=== PATIENT | female | born 1970 | race Caucasian/White ===

== ENCOUNTER 2022-02-18 17:45 | Emergency (ER) | payer SELFPAY ==
[2022-02-18 18:19] LABS: Urine Blood Trace-intact (Negative); Urine Glucose Negative (Negative); Urine Protein Negative (Negative); Urine Specific Gravity 1.025 (1.005-1.030); Urine pH 5.5 (5.0-7.0)
[2022-02-18] MEDS ORDERED: MORPHINE 4 MG/ML SYR ONE ×2 (18:40→20:13)
[2022-02-18] MEDS ORDERED: ONDANSETRON 4 MG/2 ML VIAL ONE (18:40)
[2022-02-18] MEDS ORDERED: NA CHLORIDE 0.9% 1,000 ML ONE (18:40)
[2022-02-18 18:54] LABS: Absolute Lymphocytes (CBC) 1.4 K/uL (0.7-4.9); Hematocrit 39.3 % (36.0-45.0); Lymphocytes % 17.2 % (15.3-44.8); MCV 83.2 fL (80-100); MPV 9.1 fL (7.6-11.3); RBC Red Blood Cell Count 4.73 M/uL (3.86-4.86)
[2022-02-18 19:16] LABS: Albumin 3.9 g/dL (3.4-5.0); Bilirubin Total 0.4 mg/dL (0.2-1.0); Protein, Total 8.4 g/dL (6.4-8.2)
[2022-02-18 19:25] LABS: Potassium 3.6 mmol/L (3.5-5.1)
--- NOTE | 2022-02-18 20:02 | RAD REPORT ---
EXAM DESCRIPTION: CT - Stone Protocol - 02/18/2022 7:38 pm CLINICAL HISTORY: Flank pain, kidney stone suspected COMPARISON: No comparisonsNo comparisons TECHNIQUE: Axial 3 mm thick images were obtained without oral or IV contrast. The [id number] span s the entirety of the system including uppermost abdomen and lung bases. All CT scans are performed using dose optimization technique as appropriate and may include automated exposure control or mA/KV adjustment according to patient size. FINDINGS: No hydronephrosis is present and no obstructing ureteral calculi. Patient has a nonobstruc ting 7 mm calcification lower pole left kidney. No suspicious renal masses. Isodense masses and pyelo nephritis are not excluded on a stone protocol CT scan. No significant adrenal finding. No urinary bl adder suspicious finding. Uterus is absent. Ovaries are absent or atrophic. Imaged portions of the liver, spleen and pancreas show no suspicious findings on non-contrast imaging . No gallbladder or biliary tree abnormality identified. No suspicious bowel findings. Appendix is normal. No active GI process identified. No hernia, mass or bulky lymphadenopathy noted. No free air, free fluid or inflammatory stranding. No significant bony abnormality. A 6 mm noncalcified nodule is present in the posterior lung base on the left. Full chest is not image d. If this is the only nodule present, follow-up recommendations would be CT chest imaging in 6-12 mo nths. If stable, CT study 18-24 months after this examination should be performed if the patient is h igh risk or considered if the patient is low risk. IMPRESSION: No hydronephrosis, obstructing calculus or other acute finding. No abnormality to exp juana provided history of right flank pain. Isodense masses and pyelonephritis are not excluded on stone protocol technique. A 6 millimeter noncalcified pulmonary nodule is present in the posterior left lung base. Follow-up re commendation detailed in the body of the report.
--- NOTE | 2022-02-18 21:22 | EDPHYS ---
Physician Documentation [facility] Name: Elise Michaud Age: 51 yrs Sex: Female : 1970 Arrival Date: 02/18/2022 Time: 17:50 Bed 19 Private MD: ED Physician Shad Good HPI: 02/18 18:10 This 51 yrs old Female presents to ER via Ambulatory with complaints of Right flank pm1 pain. 18:10 The patient complains of pain in the right low back. The pain does not radiate. Onset: pm1 The symptoms/episode began/occurred yesterday. Modifying factors: The symptoms are alleviated by nothing. the symptoms are aggravated by nothing. Associated signs and symptoms: Pertinent positives: dysuria, nausea, Pertinent negatives: fever. Severity of pain: in the emergency department the pain is actually worse. The patient has experienced similar episodes in the past, today's symptoms are similar, to previous kidney stones. The patient has not recently seen a physician. 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 - Social history:: Smoking status: Patient reports the use of cigarette tobacco products, smokes one-half pack cigarettes per day, Patient/guardian denies using alcohol. ROS: 18:10 Constitutional: Negative for fever, chills, and weight loss, Cardiovascular: Negative pm1 for chest pain, palpitations, and edema, Respiratory: Negative for shortness of breath, cough, wheezing, and pleuritic chest pain. 18:10 MS/Extremity: Negative for injury and deformity, Skin: Negative for injury, rash, and discoloration, Neuro: Negative for headache, weakness, numbness, tingling, and seizure. 18:10 Abdomen/GI: Positive for nausea, Negative for abdominal pain, vomiting, diarrhea. 18:10 Back: Positive for flank pain, on the right. 18:10 : Positive for urinary symptoms. 18:10 All other systems are negative. Exam: 18:10 Constitutional: This is a well developed, well nourished patient who is awake, alert, pm1 and in no acute distress. Head/Face: Normocephalic, atraumatic. 18:10 Skin: Warm, dry with normal turgor. Normal color with no rashes, no lesions, and no evidence of cellulitis. MS/ Extremity: Pulses equal, no cyanosis. Neurovascular intact. Full, normal range of motion. 18:10 Eyes: Exam is negative for acute changes, Periorbital structures: no acute changes, Extraocular movements: no acute changes, Conjunctiva: no acute changes, no injection. 18:10 Cardiovascular: Exam negative for acute changes, Rate: normal, Rhythm: regular, Pulses: no pulse deficits are appreciated, Heart sounds: normal, normal S1and S2. 18:10 Respiratory: Exam negative for acute changes, respiratory distress, shortness of breath. 18:10 Abdomen/GI: Inspection: abdomen appears normal, Palpation: abdomen is soft and non-tender, in all quadrants. 18:10 Back: pain, that is moderate, of the right low back, vertebral tenderness, is not appreciated. 18:10 Neuro: Exam negative for acute changes, Orientation: is normal, Mentation: is normal, Motor: is normal, moves all fours. Vital Signs: 18:06 Pulse 88; Resp 18; Temp 97.9(TE); Pulse Ox 100% on R/A; Weight 81.65 kg; Height 5 ft. 0 ld1 in. (152.40 cm); Pain 8/10; 18:15 BP 120 / 79 LA Supine (auto/reg); Pulse 80; Resp 18; Pulse Ox 98% on R/A; Pain 8/10; db 20:33 BP 123 / 82; Pulse 72; Resp 17 S; Pulse Ox 97% on R/A; lg3 18:06 Body Mass Index 35.15 (81.65 kg, 152.40 cm) ld1 MDM: 18:10 Patient medically screened. pm1 21:19 Data reviewed: vital signs. Data interpreted: Pulse oximetry: on room air is 97 %. pm1 Interpretation: normal. 21:19 Counseling: I had a detailed discussion with the patient and/or guardian regarding: the pm1 historical points, exam findings, and any diagnostic results supporting the discharge/admit diagnosis, lab results, radiology results, the need for outpatient follow up, a family practitioner. 21:19 Special discussion: I discussed with the patient the need to follow-up with the pm1 PCP/specialist for the noted incidental finding on X-ray/CT scanning. pulmonary nodule needs follow up as recommended by radiologist. Gave patient copy of Ct report and labs. 21:19 ED course: Told patient impression is likely muscular due to work up findings and she pm1 reports that she was moving last weekend. 02/18 18:10 Order name: CBC with Diff; Complete Time: 19:05 pm1 02/18 18:10 Order name: CMP; Complete Time: 19:31 pm1 02/18 18:10 Order name: Lipase; Complete Time: 19:31 pm1 02/18 18:10 Order name: CT Stone Protocol; Complete Time: 20:14 pm1 02/18 18:19 Order name: Urine Dipstick-Ancillary; Complete Time: 18:55 EDMS 02/18 18:10 Order name: IV Saline Lock; Complete Time: 18:54 pm1 02/18 18:10 Order name: Labs collected and sent; Complete Time: 18:55 pm1 02/18 18:10 Order name: Urine Dipstick-Ancillary (obtain specimen); Complete Time: 18:18 pm1 02/18 18:10 Order name: Urine Test (obtain specimen); Complete Time: 18:19 pm1 Administered Medications: 18:40 Drug: NS 0.9% 1000 ml Route: IV; Rate: 1 bolus; Site: right antecubital; db 20:10 Follow up: IV Status: Completed infusion; IV Intake: 1000ml lg3 18:40 Drug: Zofran (Ondansetron) 4 mg Route: IVP; Site: right antecubital; db 20:10 Follow up: Response: No adverse reaction; Marked relief of symptoms lg3 18:40 Drug: morphine 4 mg Route: IVP; Infused Over: 4 mins; Site: right antecubital; db 20:10 Follow up: Response: No adverse reaction; No change in condition; Pain is unchanged, lg3 physician notified 20:18 Drug: morphine 4 mg Route: IVP; Infused Over: 4 mins; Site: right antecubital; lg3 21:32 Drug: Ketorolac 30 mg Route: IVP; Site: right antecubital; lg3 21:32 Drug: Lidoderm Patch 5 % (700 mg/patch) 1 patches Route: Topical; Site: affected area; lg3 21:33 Drug: Flexeril (cyclobenzaprine) 10 mg Route: PO; lg3 Disposition: 19:39 Co-signature as Attending Physician, Shad Good DO I was immediately available on-site ms3 in the Emergency Department for consultation in the care of the patient.. Disposition Summary: 02/18/22 21:22 Discharge Ordered Location: Home pm1 Problem: new pm1 Symptoms: have improved pm1 Condition: Stable pm1 Diagnosis - Low back pain pm1 - Muscle spasm of back pm1 Followup: pm1 - With: Emergency Department - When: As needed - Reason: Worsening of condition Followup: pm1 - With: Private Physician - When: 2 - 3 days - Reason: Recheck today's complaints, Continuance of care, Re-evaluation by your physician Discharge Instructions: - Discharge Summary Sheet pm1 - Acute Back Pain, Adult pm1 - Muscle Strain pm1 - Musculoskeletal Pain pm1 - Back Injury Prevention, [id number] pm1 - Heat Therapy pm1 Forms: - Medication Reconciliation Form pm1 - Thank You Letter pm1 - Antibiotic Education pm1 - Prescription Opioid Use pm1 Prescriptions: - Cyclobenzaprine 10 mg Oral Tablet - take 1 tablet by ORAL route every 8 hours As needed; 30 tablet; Refills: 0, pm1 Product Selection Permitted - Lidoderm 5 % Topical adhesive patch,medicated - apply 1 patch by TRANSDERMAL route once daily As needed 12 hours on and 12 pm1 hours off in a 24 hour period; 30 patch; Refills: 0, Product Selection Permitted - Tylenol-Codeine #3 300 mg-30 mg Oral - take 2 tablet by ORAL route every 6 hours As needed; 20 tablet; Refills: 0, pm1 Product Selection Permitted Signatures: Dispatcher [employer] Abraham Lee NP CASHIER TICKET SELLING pm1 Shoshana Noguera, RN RN lg3 Shad Good DO DO ms3 Priya Rivera RN RN ld1 Veronica Parker RN RN db
--- NOTE | 2022-02-18 21:22 | ER ---
Nurse's Notes [facility] Name: Elise Michaud Age: 51 yrs Sex: Female : 1970 Arrival Date: 02/18/2022 Time: 17:50 Bed 19 Private MD: Diagnosis: Low back pain;Muscle spasm of back Presentation: 02/18 18:06 Chief complaint: Patient states: Right flank pain X 1 day. Pt reports severe flank ld1 pain, "I think it is a kidney stone.". Coronavirus screen: At this time, the client does not indicate any symptoms associated with coronavirus-19. Ebola Screen: No symptoms or risks identified at this time. Initial Sepsis Screen: Does the patient meet any 2 criteria? No. Patient's initial sepsis screen is negative. Does the patient have a suspected source of infection? No. Patient's initial sepsis screen is negative. Risk Assessment: Do you want to hurt yourself or someone else? Patient reports no desire to harm self or others. Onset of symptoms was February 18, 2022. 18:06 Method Of Arrival: Ambulatory ld1 18:06 Acuity: ISIDORO 3 ld1 Triage Assessment: 18:07 General: Appears in no apparent distress. uncomfortable, Behavior is calm, cooperative, ld1 appropriate for age. Pain: Complains of pain in right low back Pain does not radiate. Pain currently is 8 out of 10 on a pain scale. Quality of pain is described as sharp, shooting, Pain began 1 day ago. Is continuous. EENT: No signs and/or symptoms were reported regarding the EENT system. Neuro: Level of Consciousness is awake, alert, obeys commands, Oriented to person, place, time, situation, Appropriate for age. Cardiovascular: Capillary refill < 3 seconds Patient's skin is warm and dry. Respiratory: Airway is patent Respiratory effort is even, unlabored. GI: Abdomen is round non-distended. : No signs and/or symptoms were reported regarding the genitourinary system. Musculoskeletal: No signs and/or symptoms reported regarding the musculoskeletal system. 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 - Social history:: Smoking status: Patient reports the use of cigarette tobacco products, smokes one-half pack cigarettes per day, Patient/guardian denies using alcohol. Screenin:15 Abuse screen: Denies threats or abuse. Denies injuries from another. Nutritional db screening: No deficits noted. Tuberculosis screening: No symptoms or risk factors identified. Fall Risk None identified. No fall in past 12 months (0 pts). No secondary diagnosis (0 pts). IV access (20 points). Ambulatory Aid- None/Bed Rest/Nurse Assist (0 pts). Gait- Normal/Bed Rest/Wheelchair (0 pts) Mental Status- Oriented to own ability (0 pts). Total Bird Fall Scale indicates No Risk (0-24 pts). Assessment: 18:35 Reassessment: Patient appears in no apparent distress at this time. Patient is alert, db oriented x 3, equal unlabored respirations, skin warm/dry/pink. patient states has left lower flank pain started today at 0100 with nausea. Denies vomiting. States thinks its kidney stones. General: Appears in no apparent distress. distressed, comfortable, Behavior is calm, cooperative, appropriate for age, quiet. Pain: Complains of pain in left flank. Neuro: No deficits noted. Level of Consciousness is awake, alert, obeys commands, Oriented to person, place, time, situation, Appropriate for age Speech is normal, Facial symmetry appears normal. Cardiovascular: No deficits noted. Respiratory: No deficits noted. GI: No deficits noted. Bowel sounds present X 4 quads. Abd is soft Abd is non tender. : No deficits noted. No signs and/or symptoms were reported regarding the genitourinary system. : Reports. EENT: No deficits noted. No signs and/or symptoms were reported regarding the EENT system. Derm: No deficits noted. No signs and/or symptoms reported regarding the dermatologic system. 20:33 General: Appears in no apparent distress. uncomfortable, Behavior is calm, cooperative. lg3 Pain: Complains of pain in right low back Pain currently is 7 out of 10 on a pain scale. Noted to be grimacing, guarding, resistant to movement. Neuro: No deficits noted. Higginbotham Agitation-Sedation Scale (RASS): 0 - Alert and Calm Level of Consciousness is awake, alert, obeys commands, Oriented to person, place, time, situation. Cardiovascular: No deficits noted. Denies chest pain, shortness of breath, Capillary refill < 3 seconds Clubbing of nail beds is absent JVD is absent Patient's skin is warm and dry. Respiratory: No deficits noted. Airway is patent Trachea midline Respiratory effort is even, unlabored, Respiratory pattern is regular, symmetrical, Breath sounds are clear bilaterally. GI: No deficits noted. Abdomen is round non-distended, Bowel sounds present X 4 quads. Abd is soft and non tender X 4 quads. : No deficits noted. No signs and/or symptoms were reported regarding the genitourinary system. EENT: No deficits noted. No signs and/or symptoms were reported regarding the EENT system. Derm: No deficits noted. No signs and/or symptoms reported regarding the dermatologic system. Skin is intact, is healthy with good turgor, Skin is dry, Skin is normal, Skin temperature is warm. Musculoskeletal: No deficits noted. No signs and/or symptoms reported regarding the musculoskeletal system. Circulation, motion, and sensation intact. Range of motion: intact in all extremities. Vital Signs: 18:06 Pulse 88; Resp 18; Temp 97.9(TE); Pulse Ox 100% on R/A; Weight 81.65 kg; Height 5 ft. 0 ld1 in. (152.40 cm); Pain 8/10; 18:15 BP 120 / 79 LA Supine (auto/reg); Pulse 80; Resp 18; Pulse Ox 98% on R/A; Pain 8/10; db 20:33 BP 123 / 82; Pulse 72; Resp 17 S; Pulse Ox 97% on R/A; lg3 18:06 Body Mass Index 35.15 (81.65 kg, 152.40 cm) ld1 ED Course: 17:50 Patient arrived in ED. dt4 18:02 Abraham Antunez NP is PHCP. pm1 18:02 Shad Good DO is Attending Physician. pm1 18:07 Triage completed. ld1 18:07 Arm band placed on right wrist. ld1 18:15 Patient has correct armband on for positive identification. Bed in low position. Call db light in reach. Side rails up X 1. 18:26 Veronica Parker, MELVIN is Primary Nurse. db 18:40 Inserted saline lock: 20 gauge in right antecubital area, using aseptic technique. db 19:18 Report given to MELVIN Anna. Pulse ox on. NIBP on. db 19:40 CT Stone Protocol In Process Unspecified. EDMS 21:50 No provider procedures requiring assistance completed. IV discontinued, intact, lg3 bleeding controlled, No redness/swelling at site. Pressure dressing applied. Administered Medications: 18:40 Drug: NS 0.9% 1000 ml Route: IV; Rate: 1 bolus; Site: right antecubital; db 20:10 Follow up: IV Status: Completed infusion; IV Intake: 1000ml lg3 18:40 Drug: Zofran (Ondansetron) 4 mg Route: IVP; Site: right antecubital; db 20:10 Follow up: Response: No adverse reaction; Marked relief of symptoms lg3 18:40 Drug: morphine 4 mg Route: IVP; Infused Over: 4 mins; Site: right antecubital; db 20:10 Follow up: Response: No adverse reaction; No change in condition; Pain is unchanged, lg3 physician notified 20:18 Drug: morphine 4 mg Route: IVP; Infused Over: 4 mins; Site: right antecubital; lg3 21:32 Drug: Ketorolac 30 mg Route: IVP; Site: right antecubital; lg3 21:32 Drug: Lidoderm Patch 5 % (700 mg/patch) 1 patches Route: Topical; Site: affected area; lg3 21:33 Drug: Flexeril (cyclobenzaprine) 10 mg Route: PO; lg3 Medication: 18:15 VIS not applicable for this client. db Intake: 20:10 IV: 1000ml; Total: 1000ml. lg3 Outcome: 21:22 Discharge ordered by MD. pm1 21:50 Discharged to home ambulatory. lg3 21:50 Condition: stable 21:50 Discharge instructions given to patient, Instructed on discharge instructions, follow up and referral plans. medication usage, Demonstrated understanding of instructions, follow-up care, medications, Prescriptions given X 3. 21:50 Patient left the ED. lg3 Signatures: Dispatcher [employer] EDMS Abraham Antunez, VP OF DIGITAL MARKETING VP OF DIGITAL MARKETING pm1 Shoshana Noguera RN RN lg3 Priya Rivera RN RN ld1 Kay Garcia dt4 Veronica Parker, RN RN db
[2022-02-18] MEDS ORDERED: CYCLOBENZAPRINE 10 MG TAB ONE (21:28)
[2022-02-18] MEDS ORDERED: LIDOCAINE 4% PATCH ONE (21:28)
[2022-02-18] MEDS ORDERED: KETOROLAC 30 MG/ML INJ ONE (21:28)
[2022-02-18 23:03] VITALS: TEMP 97.9
[2022-02-18 23:10] VITALS: BP 123/82; O2SAT 97
== END 2022-02-18 21:50 | disposition home or self-care (01) ==
LOC: ER 17:45
DX: M62.830 Muscle spasm of back (principal); F17.210 Nicotine dependence, cigarettes, uncomplicated
CPT/HCPCS: 36415; 74176; 76377; 80053; 81003; 83690; 85025; 96361; 96374; 96375; 99284; J2001; J2405; J7030

== ENCOUNTER 2024-02-23 13:13 | Emergency (ER) | payer OTHER, SELFPAY ==
--- OUTSIDE RECORDS SUMMARY | 2024-02-23 13:16 | XMS REPORT | Continuity of Care Document ---
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
[2024-02-23] MEDS ORDERED: KETOROLAC 30 MG/ML INJ ONE (13:45)
[2024-02-23] MEDS ORDERED: ONDANSETRON 4 MG/2 ML VIAL ONE ×2 (13:45→16:39)
[2024-02-23] MEDS ORDERED: NA CHLORIDE 0.9% 1,000 ML ONE (13:46)
[2024-02-23 13:56] LABS: Absolute Eosinophils 0.1 K/uL (0-0.5); Absolute Lymphocytes (CBC) 1.5 K/uL (0.7-4.9); Absolute Monocytes 0.4 K/uL (0.1-1.3); Absolute Neutrophil 7.3 K/uL (1.8-8.0); Basophils % 0.2 % (0-1.3); Eosinophils % 0.9 % (0-4.4); Hematocrit 37.6 % (36.0-45.0); Hemoglobin 12.3 g/dL (12.0-15.0); Lymphocytes % 16.2 % (15.3-44.8); MCH 28.2 pg (27.0-35.0); MCHC 32.8 g/dL (32.0-36.0); MCV 85.9 fL (80-100); MPV 9.2 fL (7.6-11.3); Monocytes % 4.6 % (3.3-12.3); Neutrophils % 78.1 % (41.7-73.7); Nucleated Red Blood Cells % 0.1 % (0-0); Platelets 233 thou/uL (152-406); RBC Red Blood Cell Count 4.38 M/uL (3.86-4.86); Red Cell Distribution Width 14.1 % (12.1-15.2)
[2024-02-23 14:03] LABS: Specific Gravity > 1.030 (1.005-1.030); Sqamous Epithelial 20-50 /HPF (None Seen); Transitional Epithelial <5 /HPF (None Seen); Urine Bacteria >50 /HPF (<20); Urine Bilirubin NEGATIVE (Negative); Urine Blood 2+ (Negative); Urine Clarity Extremely Turbid (Clear); Urine Color Yellow (Yellow); Urine Culture Reflex Order NOT NEEDED; Urine Glucose NEGATIVE (Negative); Urine Ketones TRACE (Negative); Urine Microscopic Reflex YN ORDER UMIC; Urine Mucus Slight /HPF (None Seen); Urine Nitrite NEGATIVE (Negative); Urine Protein TRACE (Negative); Urine RBC >50 /HPF (None Seen); Urine Urobilinogen 1+ (Normal); Urine WBC <5 /HPF (<5); Urine pH 5.5 (5.0-7.0)
[2024-02-23 14:19] LABS: Albumin 3.4 g/dL (3.4-5.0); Albumin/Globulin Ratio 0.8 (1.1-1.8); Anion Gap 6.9 mEq/L (5.0-15.0); Bilirubin Total 0.5 mg/dL (0.2-1.0); Globulin 4.4 g/dL (2.3-3.5); Potassium 3.9 mEq/L (3.5-5.1); Protein, Total 7.8 g/dL (6.4-8.2)
--- NOTE | 2024-02-23 15:12 | RAD REPORT ---
EXAMINATION: CT ABDOMEN AND PELVIS WITH CONTRAST CLINICAL INDICATION: ABD PAIN TECHNIQUE: CT abdomen and pelvis was performed, after the administration of IV contrast[facility] Axial, sagittal and coronal reconstructions were obtained. One or more of the following dose reduction techniques were used: Automated exposure control, adjustment of the mA and k V according to patient size, and iterative reconstruction. Unless otherwise specified, incidental findings do not require dedicated imaging follow-up. COMPARISON: No prior exam. FINDINGS: LOWER CHEST: Small nodule in the left lung base posteriorly measuring 8 mm with central punctate calc ification likely benign. LIVER: Normal in size and contour. No focal lesion. Grossly unremarkable gallbladder. SPLEEN: Normal size. No focal lesion. PANCREAS: No mass, ductal dilation, or cesar-pancreatic fluid. ADRENALS: Normal; no mass. KIDNEYS: 8 mm nonobstructive calculus inferior calyx left kidney. GASTROINTESTINAL TRACT: Advanced pattern of fecal retention in the colon. Irregular luminal narrowing measuring 4 cm of the sigmoid colon noted could be neoplastic in origin. Mild surrounding inflammation in the region. APPENDIX: Appendix not visualized, but no inflammatory changes in region of appendix. LYMPH NODES: Upper limit of normal retroperitoneal lymph nodes seen. Subcentimeter left pelvic sidewa ll/obturator lymph nodes. MUSCULOSKELETAL: Lumbosacral degenerative changes with mild levoscoliosis. ADDITIONAL FINDINGS: None. IMPRESSION: 4 cm section of the sigmoid colon with significant luminal narrowing and mild surrounding inflammatio n. There is significant upstream retention of stool throughout the colon. Malignancy is the diagnosis of concern, recommend colonoscopy follow-up.
--- NOTE | 2024-02-23 16:31 | ER ---
Nurse's Notes [facility] Name: Elise Michaud Age: 53 yrs Sex: Female : 1970 Arrival Date: 02/23/2024 Time: 13:13 Bed 11 Private MD: Diagnosis: UTI/ Urinary tract infection, site not specified;4cm section of inflammation and narrowing in sigmoid colon Presentation: 02/22 13:24 Chief complaint: Patient states: Lower abdominal pain and cramping with hematuria onset ll1 3.5 weeks ago. Pt states that her symptoms had resolved and started back on wednesday. Coronavirus screen: Client denies travel out of the [place] in the last 14 days. Ebola Screen: Patient denies travel to an Ebola-affected area in the 21 days before illness onset. No symptoms or risks identified at this time. Initial Sepsis Screen: Does the patient meet any 2 criteria? HR > 90 bpm. Does the patient have a suspected source of infection? No. Patient's initial sepsis screen is negative. Risk Assessment: Do you want to hurt yourself or someone else? Patient reports no desire to harm self or others. Onset of symptoms was February 23, 2024. 13:24 Method Of Arrival: Ambulatory ll1 13:24 Acuity: ISIDORO 3 ll1 Triage Assessment: 13:26 General: Appears in no apparent distress. uncomfortable, Behavior is calm, cooperative. ll1 Pain: Complains of pain in back and abdomen. Neuro: No deficits noted. Level of Consciousness is awake, alert, obeys commands, Oriented to person, place, time, situation, Appropriate for age. Respiratory: No deficits noted. Airway is patent Respiratory effort is even, unlabored, Respiratory pattern is regular, symmetrical. Historical: - Allergies: 13:24 No Known Allergies; ll1 - Home Meds: 13:24 Ozempic subcutaneous [Active]; ll1 - PMHx: 13:24 Hypertensive disorder; ll1 - PSHx: 13:24 hysterectomy; ll1 - Immunization history:: Adult Immunizations up to date. - Infectious Disease History:: Denies. - Social history:: Smoking status: Patient reports the use of cigarette tobacco products, smokes one-half pack cigarettes per day. Screenin:30 [facility] ED Fall Risk Assessment (Adult) History of falling in the last 3 months, rs5 including since admission No falls in past 3 months (0 pts) Confusion or Disorientation No (0 pts) Intoxicated or Sedated No (0 pts) Impaired Gait No (0 pts) Mobility Assist Device Used No (0 pt) Altered Elimination No (0 pt) Score/Fall Risk Level 0 - 2 = Low Risk Oriented to surroundings, Maintained a safe environment. 13:30 Abuse screen: Denies threats or abuse. Nutritional screening: No deficits noted. rs5 Tuberculosis screening: No symptoms or risk factors identified. Assessment: 13:30 General: Appears in no apparent distress. uncomfortable, Behavior is calm, cooperative. rs5 Pain: Complains of pain in abdomen Pain currently is 3 out of 10 on a pain scale. Quality of pain is described as aching, Is continuous. Neuro: Level of Consciousness is awake, alert, obeys commands, Oriented to person, place, time, situation. 13:30 Cardiovascular: Patient's skin is warm and dry. Respiratory: Airway is patent rs5 Respiratory effort is even, unlabored, Respiratory pattern is regular, symmetrical. GI: Abdomen is round non-distended, Abd is soft and non tender X 4 quads. : Reports hematuria. EENT: No signs and/or symptoms were reported regarding the EENT system. Derm: Skin is intact, Skin is pink, warm \T\ dry. Musculoskeletal: Range of motion: intact in all extremities. 14:41 Reassessment: Patient and/or family updated on plan of care and expected duration. Pain rs5 level reassessed. Patient is alert, oriented x 3, equal unlabored respirations, skin warm/dry/pink. 15:54 Reassessment: Patient and/or family updated on plan of care and expected duration. Pain rs5 level reassessed. Patient is alert/active/playful, equal unlabored respirations, skin warm/dry/pink. 16:25 Reassessment: Patient and/or family updated on plan of care and expected duration. Pain rs5 level reassessed. Patient is alert, oriented x 3, equal unlabored respirations, skin warm/dry/pink. Vital Signs: 13:24 BP 142 / 98; Pulse 102; Resp 18; Temp 98.6; Pulse Ox 100% on R/A; Weight 73.94 kg; ll1 Height 5 ft. 0 in. ; Pain 7/10; 15:04 BP 128 / 79; Pulse 77; Resp 17; Pulse Ox 99% on R/A; rs5 16:25 BP 134 / 81; Pulse 81; Resp 17; Pulse Ox 99% on R/A; rs5 13:24 Body Mass Index 31.84 (73.94 kg, 152.4 cm) ll1 13:24 Pain Scale: Adult ll1 ED Course: 13:18 Patient arrived in ED. ra3 13:18 Courtney Olguin FNP-C is [facility]. kb 13:18 Lexx Valles MD is Attending Physician. kb 13:25 Triage completed. ll1 13:26 Arm band placed on Patient placed in an exam room, on a stretcher. ll1 13:30 Patient has correct armband on for positive identification. Placed in gown. Bed in low rs5 position. Call light in reach. Side rails up X2. 13:30 No provider procedures requiring assistance completed. rs5 13:53 Inserted saline lock: 22 gauge in right antecubital area, using aseptic technique. ll1 Blood collected. Flushed with 10 mL NS. 14:48 CT Abd/Pelvis - IV Contrast Only In Process Unspecified. EDMS 15:02 Sunday Zabala, RN is Primary Nurse. rs5 16:30 Provided Education on: discharge instructions . rs5 16:41 IV discontinued, intact, bleeding controlled, No redness/swelling at site. Pressure rs5 dressing applied. Administered Medications: 13:52 Drug: TORadol - Ketorolac IVP 15 mg IVP once {Note: PAIN 3/10.} Route: IVP; Site: right ll1 antecubital; 14:10 Follow up: Response: No adverse reaction; Pain is decreased rs5 13:52 Drug: Ondansetron IVP 4 mg IVP once; over 2 minutes Route: IVP; Site: right antecubital;ll1 14:20 Follow up: Response: No adverse reaction rs5 13:52 Drug: NS 0.9% IV 1000 ml IV at 1 bolus Per protocol; to be given as a bolus over 60 ll1 minutes Route: IV; Rate: 1 bolus; Site: right antecubital; 14:58 Follow up: IV Status: Completed infusion; IV Intake: 1000ml rs5 16:35 Drug: Ondansetron IVP 4 mg IVP once; over 2 minutes Route: IVP; Site: right antecubital;rs5 17:00 Follow up: Response: No adverse reaction rs5 Medication: 16:35 VIS not applicable for this client. rs5 Intake: 14:58 IV: 1000ml; Total: 1000ml. rs5 Outcome: 16:30 Discharge ordered by . hi 16:41 Discharged to home ambulatory, rs5 16:41 Condition: stable rs5 16:41 Discharge instructions given to patient, family, Instructed on discharge instructions, follow up and referral plans. Demonstrated understanding of instructions, follow-up care, 16:45 Patient left the ED. rs5 Signatures: Dispatcher [employer] EDMS Courtney Olguin, DAY-Shyam BERNSTEIN-Alejandro Castro RN RN ll1 Sunday Zabala RN RN rs5 Sima Montanez ra3 Corrections: (The following items were deleted from the chart) 18:28 13:30 Pain: Complains of pain in back and abdomen Pain currently is 3 out of 10 on a rs5 pain scale. Quality of pain is described as aching, Is continuous, rs5 18:28 13:30 : No signs and/or symptoms were reported regarding the genitourinary system. rs5rs5 18:28 13:30 EENT: No signs and/or symptoms were reported regarding the EENT system. rs5 rs5
--- NOTE | 2024-02-23 16:31 | EDPHYS ---
Physician Documentation [facility] Name: Elise Michaud Age: 53 yrs Sex: Female : 1970 Arrival Date: 02/23/2024 Time: 13:13 Bed 11 Private MD: ED Physician Lexx Valles HPI: 02/22 13:25 This 53 yrs old Female presents to ER via Unassigned with complaints of Low Back Pain, kb Pelvic Pain. 13:25 Patient is a 53-year-old female who presents for low back pain and lower abdominal pain kb that started 3-1/2 weeks ago. Reports pain has been intermittent with intermittent hematuria as well. Was seen by a nurse practitioner and diagnosed with UTI a few weeks ago, took antibiotics and felt better but the pain returns. States she saw kidney doctor in [place] last week and was told that she was constipated. That doctor ordered a CT scan and blood work that was supposed to be completed yesterday for a follow-up visit next week. Patient states she did not go get the diagnostic testing done because she was in a lot of pain and vomiting yesterday so she did not want a go anywhere. Reports pain continued today. Denies vomiting, hematuria at this time. Denies fever.. Historical: - Allergies: 13:24 No Known Allergies; ll1 - Home Meds: 13:24 Ozempic subcutaneous [Active]; ll1 - PMHx: 13:24 Hypertensive disorder; ll1 - PSHx: 13:24 hysterectomy; ll1 - Immunization history:: Adult Immunizations up to date. - Infectious Disease History:: Denies. - Social history:: Smoking status: Patient reports the use of cigarette tobacco products, smokes one-half pack cigarettes per day. ROS: 13:26 Constitutional: As per HPI kb Exam: 13:26 Constitutional: This is a well developed, well nourished patient who is awake, alert, kb and in no acute distress. Head/Face: Normocephalic, atraumatic. ENT: Moist Mucous membranes Cardiovascular: Regular rate Respiratory: Respirations even and unlabored. No increased work of breathing. Talking in full sentences Back: No spinal tenderness. No costovertebral tenderness. Full range of motion. Skin: Warm, dry with normal turgor. Normal color. MS/ Extremity: Pulses equal, no cyanosis. Neurovascular intact. Full, normal range of motion. Neuro: Awake and alert, GCS 15, oriented to person, place, time, and situation. 13:26 Abdomen/GI: Inspection: abdomen appears normal, Bowel sounds: normal, Palpation: soft, in all quadrants, moderate abdominal tenderness, in the right lower quadrant and left lower quadrant, Vital Signs: 13:24 BP 142 / 98; Pulse 102; Resp 18; Temp 98.6; Pulse Ox 100% on R/A; Weight 73.94 kg; ll1 Height 5 ft. 0 in. ; Pain 7/10; 15:04 BP 128 / 79; Pulse 77; Resp 17; Pulse Ox 99% on R/A; rs5 16:25 BP 134 / 81; Pulse 81; Resp 17; Pulse Ox 99% on R/A; rs5 13:24 Body Mass Index 31.84 (73.94 kg, 152.4 cm) ll1 13:24 Pain Scale: Adult ll1 MDM: 13:18 Medical Screening Exam initiated kb 13:27 Data reviewed: vital signs, nurses notes. kb 16:25 Differential diagnosis: appendicitis, bowel obstruction, non-specific abd pain, kb Pyelonephritis, urinary tract infection, constipation. Consideration of Admission/Observation Escalation of care including admission/observation considered. admission considered but pt is having normal, daily bowel movements, pain has decreased. Pt understands importance of close follow up with GI and will call for appt tomorrow. Pt given strict return precautions. Educated on increased risk of bowel obstruction and to return for increase in pain or if she isn't passing gas or stool. Pt educated on high suspicion for malignancy based on CT results. Verbal understanding of all information/instructions received. Pt and in agreement with treatment plan. Printed copy of all results given and explained. Historians other than the Patient: Spouse/Significant Other: . Counseling: I had a detailed discussion with the patient and/or guardian regarding the historical points, exam findings, and any diagnostic results supporting the discharge/admit diagnosis, lab results, radiology results, the need for outpatient follow up, a emanations analysis technician, to return to the emergency department if symptoms worsen or persist or if there are any questions or concerns that arise at home. 02/22 13:24 Order name: CBC with Diff; Complete Time: 13:59 kb 02/22 13:24 Order name: CMP; Complete Time: 14:20 kb 02/22 13:24 Order name: Lipase; Complete Time: 14:20 kb 02/22 13:24 Order name: Urinalysis w/ reflexes; Complete Time: 14:06 kb 02/22 13:24 Order name: CT Abd/Pelvis - IV Contrast Only; Complete Time: 15:14 kb 02/22 13:24 Order name: IV Saline Lock; Complete Time: 13:35 kb 02/22 13:24 Order name: Labs collected and sent; Complete Time: 13:35 kb Administered Medications: 13:52 Drug: TORadol - Ketorolac IVP 15 mg IVP once {Note: PAIN 3/10.} Route: IVP; Site: right ll1 antecubital; 14:10 Follow up: Response: No adverse reaction; Pain is decreased rs5 13:52 Drug: Ondansetron IVP 4 mg IVP once; over 2 minutes Route: IVP; Site: right antecubital;ll1 14:20 Follow up: Response: No adverse reaction rs5 13:52 Drug: NS 0.9% IV 1000 ml IV at 1 bolus Per protocol; to be given as a bolus over 60 ll1 minutes Route: IV; Rate: 1 bolus; Site: right antecubital; 14:58 Follow up: IV Status: Completed infusion; IV Intake: 1000ml rs5 16:35 Drug: Ondansetron IVP 4 mg IVP once; over 2 minutes Route: IVP; Site: right antecubital;rs5 17:00 Follow up: Response: No adverse reaction rs5 Disposition: 17:45 Co-signature as Attending Physician, Lexx Valles MD I reviewed the patient's care rn provided by the Advanced Practice Provider and agree with the diagnosis and treatment plan. Disposition Summary: 02/23/24 16:30 Discharge Ordered Notes: Location: Home kb Condition: Stable kb Diagnosis - UTI/ Urinary tract infection, site not specified kb - 4cm section of inflammation and narrowing in sigmoid colon kb Followup: kb - With: Emergency Department - When: As needed - Reason: Worsening of condition Followup: kb - With: Private Physician - When: 2 - 3 days - Reason: Recheck today's complaints, Continuance of care, Re-evaluation by your physician Discharge Instructions: - Discharge Summary Sheet kb - Urinary Tract Infection, Adult, [id number] kb Forms: - Medication Reconciliation Form kb - Antibiotic Education kb - Prescription Opioid Use kb - Patient Portal Instructions kb - Leadership Thank You Letter kb Prescriptions: - Cipro 500 mg Oral Tablet - take 1 tablet ORAL route every 12 hours for 10 days; 20 tablet; Refills: 0, kb Product Selection Permitted - Flagyl 500 mg Oral Tablet - take 1 tablet ORAL route every 8 hours for 10 days; 30 tablet; Refills: 0, kb Product Selection Permitted - Zofran 4 mg Oral tablet - take 1 tablet ORAL route every 6 hours As needed; 20 tablet; Refills: 0, kb Product Selection Permitted Signatures: Dispatcher [employer] EDLA Courtney Olguin, AGRICULTURE DEPARTMENT CHAIR-C AGRICULTURE DEPARTMENT CHAIR-Lexx Proctor MD MD rn Lewis, Lynsay RN RN ll1 Sunday Zabala RN RN rs5 Corrections: (The following items were deleted from the chart) 13:25 13:25 Abdomen Pelvis W Con+CT.RAD.BRZ ordered. [facility] 16:32 16:25 Consideration of Admission/Observation Escalation of care including kb admission/observation considered. admission considered but pt is having normal, daily bowel movements, pain has decreased. Pt understands importance of close follow up with GI and will call for appt tomorrow. Pt given strict return precautions. Educated on increased risk of bowel obstruction and to return for increase in pain or if she isn't passing gas or stool. Pt educated on high suspicion for malignancy based on CT results. Verbal understanding of all information/instructions received. Pt and in agreement with treatment plan.. kb 16:32 16:25 Counseling: I had a detailed discussion with the patient and/or guardian hi regarding the historical points, exam findings, and any diagnostic results supporting the discharge/admit diagnosis, lab results, radiology results, the need for outpatient follow up, a emanations analysis technician, to return to the emergency department if symptoms worsen or persist or if there are any questions or concerns that arise at home, hi
[2024-02-23 17:11] VITALS: BP 142/98; TEMP 98.6; O2SAT 100
== END 2024-02-23 16:45 | disposition home or self-care (01) ==
LOC: ER 13:13
DX: N39.0 Urinary tract infection, site not specified (principal); K63.89 Other specified diseases of intestine; I10 Essential (primary) hypertension
CPT/HCPCS: 85025; 81001; 36415; 83690; 80053; 74177; Q9967; J2405 ×2; J7030; 96361; 96374; 96375; 99284

== ENCOUNTER 2024-05-10 19:26 | Emergency (ER) | payer OTHER ==
--- OUTSIDE RECORDS SUMMARY | 2024-05-10 19:29 | XMS REPORT | Continuity of Care Document ---
Author Name Unknown Address [address] [place] [address] thconnect Address [address] [place] [address] Care Team Providers Care Metal Framer Name Role Phone Unavailable Unavailable Unavailable
[2024-05-10] MEDS ORDERED: ONDANSETRON 4 MG/2 ML VIAL ONE (20:29)
[2024-05-10] MEDS ORDERED: NA CHLORIDE 0.9% 500 ML ONE (20:29)
[2024-05-10] MEDS ORDERED: KETOROLAC 30 MG/ML INJ ONE (20:29)
[2024-05-10 21:13] LABS: Specific Gravity > 1.030 (1.005-1.030); Sqamous Epithelial <5 /HPF (None Seen); Urine Bacteria None Seen /HPF (<20); Urine Bilirubin NEGATIVE (Negative); Urine Blood Trace (Negative); Urine Clarity Clear (Clear); Urine Color Yellow (Yellow); Urine Crystals Unidentified Few /HPF (None Seen); Urine Culture Reflex Order NOT NEEDED; Urine Glucose NEGATIVE (Negative); Urine Ketones NEGATIVE (Negative); Urine Micro Reflex YN NO BILL MICROSCOPIC; Urine Mucus Slight /HPF (None Seen); Urine Nitrite NEGATIVE (Negative); Urine Protein TRACE (Negative); Urine Urobilinogen Normal (Normal); Urine WBC <5 /HPF (<5); Urine pH 5.5 (5.0-7.0)
[2024-05-10 21:14] LABS: Absolute Lymphocytes (CBC) 1.4 K/uL (0.7-4.9); Absolute Monocytes 0.4 K/uL (0.1-1.3); Absolute Neutrophil 4.2 K/uL (1.8-8.0); Basophils % 0.2 % (0-1.3); Eosinophils % 0.8 % (0-4.4); Hematocrit 42.1 % (36.0-45.0); Hemoglobin 14.2 g/dL (12.0-15.0); Lymphocytes % 23.4 % (15.3-44.8); MCH 28.6 pg (27.0-35.0); MCHC 33.7 g/dL (32.0-36.0); Monocytes % 6.3 % (3.3-12.3); Neutrophils % 69.3 % (41.7-73.7); Platelets 241 thou/uL (152-406); RBC Red Blood Cell Count 4.95 M/uL (3.86-4.86); Red Cell Distribution Width 14.3 % (12.1-15.2)
[2024-05-10 21:23] LABS: Albumin 3.8 g/dL (3.4-5.0); Albumin/Globulin Ratio 0.9 (1.1-1.8); Anion Gap 7.7 mEq/L (5.0-15.0); Bilirubin Total 0.3 mg/dL (0.2-1.0); Globulin 4.1 g/dL (2.3-3.5); Potassium 3.7 mEq/L (3.5-5.1); Protein, Total 7.9 g/dL (6.4-8.2)
--- NOTE | 2024-05-10 22:17 | RAD REPORT ---
EXAMINATION: CT ABDOMEN AND PELVIS WITH CONTRAST CLINICAL INDICATION: Female, 54 years old.lower abdomen pain TECHNIQUE: CT abdomen and pelvis was performed, after the administration of IV contrast, as per [facility] protocol. Axial, sagittal and coronal reconstructions were obtained. One or more of the following dose reduction techniques were used: Automated exposure control, adjustment of the mA and/o r kV according to patient size, and/or iterative reconstruction. Unless otherwise specified, incidental findings do not require dedicated imaging follow-up. [id number]. COMPARISON: 02/23/2024 FINDINGS: LOWER CHEST: Partially calcified left lower lobe nodule has benign imaging features.No significant pe ricardial effusion. UPPER GI: No significant abnormality. LIVER: Hepatic steatosis, but otherwise unremarkable. GALLBLADDER/BILE DUCTS: Distended gallbladder. No pericholecystic fluid changes.? PANCREAS: Atrophy, but otherwise unremarkable. SPLEEN: Unremarkable. ADRENALS: No adrenal masses. KIDNEYS AND URETERS: No hydronephrosis.Low density and/or too small to characterize renal lesions whi ch are statistically benign.6 mm stone in the interpolar aspect of the left kidney. ABDOMINAL AORTA AND OTHER VESSELS: Mild atherosclerotic changes. PERITONEUM: No abnormal free fluid. No free air. LYMPH NODES: No pathologic lymphadenopathy. ABDOMINAL WALL: Unremarkable SMALL BOWEL/COLON: Similar to prior, there are segments of thickening in the mid and distal sigmoid c olon with interspersed inspissated stool.Overall, the stool burden is moderate. Normal appendix. URINARY BLADDER: Underdistended but grossly unremarkable. REPRODUCTIVE ORGANS: Uterus surgically absent. No adnexal abnormality. MUSCULOSKELETAL: ADDITIONAL FINDINGS: None. IMPRESSION: 1. Moderate inspissated stool with segments of wall thickening at the mid and distal sigmoid colon si milar to prior. This could reflect some component of colitis in conjunction with constipation. 2. Nonobstructive left nephrolithiasis. 3. Distended gallbladder. If concern for acute cholecystitis, consider right upper quadrant ultrasoun d.
[2024-05-10] MEDS ORDERED: CEFTRIAXONE 1000 MG/VIAL ONE (23:13)
--- NOTE | 2024-05-11 00:37 | ER ---
Nurse's Notes [facility] Name: Elise Michaud Age: 54 yrs Sex: Female : 1970 Arrival Date: 05/10/2024 Time: 19:26 Bed 16 Private MD: Diagnosis: Dysuria;Other cholelithiasis without obstruction;Constipation, unspecified Presentation: 05/10 19:45 Chief complaint: Patient states: vomiting and not eating x 2-3 days ago, pt also aa5 reports pain with urination and hematuria. Reports she is taking Ozempic for weight loss. Coronavirus screen: vomiting. Ebola Screen: Patient denies travel to an Ebola-affected area in the 21 days before illness onset. Initial Sepsis Screen: Does the patient meet any 2 criteria? No. Patient's initial sepsis screen is negative. Does the patient have a suspected source of infection? No. Patient's initial sepsis screen is negative. Risk Assessment: Do you want to hurt yourself or someone else? Patient reports no desire to harm self or others. Onset of symptoms was April 2024. 19:45 Acuity: ISDIORO 3 aa5 19:45 Method Of Arrival: Ambulatory aa5 Historical: - Allergies: 19:45 No Known Allergies; aa5 - PMHx: 19:45 Hypertensive disorder; aa5 - PSHx: 19:45 hysterectomy; aa5 - Immunization history:: Adult Immunizations unknown. - Infectious Disease History:: Denies. - Social history:: Smoking status: Patient reports the use of cigarette tobacco products. Screenin/16 00:47 [facility] ED Fall Risk Assessment (Adult) History of falling in the last 3 months, jb4 including since admission No falls in past 3 months (0 pts) Confusion or Disorientation No (0 pts) Intoxicated or Sedated No (0 pts) Impaired Gait No (0 pts) Mobility Assist Device Used No (0 pt) Altered Elimination No (0 pt) Score/Fall Risk Level 0 - 2 = Low Risk Oriented to surroundings, Maintained a safe environment. Abuse screen: Denies threats or abuse. Nutritional screening: No deficits noted. Tuberculosis screening: No symptoms or risk factors identified. Assessment: 05/10 20:00 General: Appears in no apparent distress. comfortable, Behavior is calm, cooperative, jb4 appropriate for age. Pain: Complains of pain in abdomen Pain does not radiate. Pain currently is 7 out of 10 on a pain scale. Neuro: Level of Consciousness is awake, alert, obeys commands, Oriented to person, place, time, situation. Cardiovascular: Patient's skin is warm and dry. Respiratory: Airway is patent Respiratory effort is even, unlabored, Respiratory pattern is regular, symmetrical. Derm: Skin is intact, Skin is pink, warm \T\ dry. Musculoskeletal: Circulation, motion, and sensation intact. Range of motion: intact in all extremities. 21:46 Reassessment: Patient appears in no apparent distress at this time. Patient and/or jb4 family updated on plan of care and expected duration. Pain level reassessed. Patient is alert, oriented x 3, equal unlabored respirations, skin warm/dry/pink. 22:45 Reassessment: Patient appears in no apparent distress at this time. Patient and/or jb4 family updated on plan of care and expected duration. Pain level reassessed. Patient is alert, oriented x 3, equal unlabored respirations, skin warm/dry/pink. 23:43 Reassessment: Patient appears in no apparent distress at this time. Patient and/or jb4 family updated on plan of care and expected duration. Pain level reassessed. Patient is alert, oriented x 3, equal unlabored respirations, skin warm/dry/pink. 05/11 00:47 Reassessment: Patient appears in no apparent distress at this time. Patient and/or jb4 family updated on plan of care and expected duration. Pain level reassessed. Patient is alert, oriented x 3, equal unlabored respirations, skin warm/dry/pink. Vital Signs: 05/10 19:45 BP 153 / 103; Pulse 97; Resp 18 S; Temp 97.8(TE); Pulse Ox 99% on R/A; Weight 70.31 kg aa5 (R); Height 5 ft. 0 in. (R); 21:00 BP 162 / 108; Pulse 82; Resp 16; Pulse Ox 98% on R/A; jb4 23:46 BP 167 / 109; Pulse 88; Resp 16; Pulse Ox 97% on R/A; jb4 19:45 Body Mass Index 30.27 (70.31 kg, 152.4 cm) aa5 ED Course: 19:31 Patient arrived in ED. gm2 19:31 John Garrett PA is PHCP. cp 19:31 John Mendez MD is Attending Physician. cp 19:45 Arm band placed on Patient placed in an exam room, on a stretcher. aa5 19:47 Triage completed. aa5 21:01 CBC with Diff Sent. jb4 21:01 CMP Sent. jb4 21:01 Lipase Sent. jb4 21:01 Urinalysis W/Microscopic Sent. jb4 21:59 CT Abd/Pelvis - IV Contrast Only In Process Unspecified. EDMS 23:38 US Abdomen Limited: gallbladder In Process Unspecified. EDMS 05/11 00:37 Adam Hendricks MD is Referral Physician. cp 00:37 Oziel Baca MD is Referral Physician. cp 00:47 Patient has correct armband on for positive identification. Bed in low position. Call jb4 light in reach. Side rails up X 1. Provided Education on: discharge instructions. . 00:47 No provider procedures requiring assistance completed. IV discontinued, intact, jb4 bleeding controlled, No redness/swelling at site. Pressure dressing applied. Administered Medications: 05/10 21:01 Drug: Ondansetron IVP 4 mg IVP once; over 2 minutes Route: IVP; Site: left antecubital; jb4 21:30 Follow up: Response: No adverse reaction; Marked relief of symptoms jb4 21:01 Drug: Ketorolac IVP 15 mg IVP once Route: IVP; Site: left antecubital; jb4 21:30 Follow up: Response: No adverse reaction; Marked relief of symptoms jb4 21:01 Drug: NS 0.9% IV 500 ml 500 ml IV at 1 bolus once; to be given as a bolus over 30 jb4 minutes Volume: 500 ml; Route: IV; Rate: 1 bolus; Site: left antecubital; 21:30 Follow up: Response: No adverse reaction; Marked relief of symptoms; IV Status: jb4 Completed infusion; IV Intake: 500ml 23:22 Drug: Rocephin IV 1 grams IV at calculated rate once; Given slow IV push per pharmacy jb4 instructions Route: IV; Rate: calculated rate; Site: left antecubital; Medication: 05/11 00:47 VIS not applicable for this client. jb4 Intake: 05/10 21:30 IV: 500ml; Total: 500ml. jb4 Outcome: 05/11 00:37 Discharge ordered by . cassidy 00:47 Discharged to home ambulatory, jb4 00:47 Condition: stable 00:47 Discharge instructions given to patient, Instructed on discharge instructions, follow up and referral plans. medication usage, Demonstrated understanding of instructions, follow-up care, medications, Prescriptions given X 3, 00:49 Patient left the ED. jb4 Signatures: Dispatcher [employer] EDMS Alicia Renee RN RN aa5 John Garrett PA PA cp Bryson, James, RN RN jb4 Cece Patel gm2 Corrections: (The following items were deleted from the chart) 05/10 23:45 23:43 BP 168 / 83; Pulse 60bpm; Resp 16bpm; Pulse Ox 98% RA; jb4 jb4
--- NOTE | 2024-05-11 00:37 | EDPHYS ---
Physician Documentation [facility] Name: Elise Michaud Age: 54 yrs Sex: Female : 1970 Arrival Date: 05/10/2024 Time: 19:26 Bed 16 Private MD: ED Physician John Mendez HPI: 05/10 19:55 This 54 yrs old Female presents to ER via Ambulatory with complaints of Pain With cp Urination, Nausea/Vomiting. 19:55 The patient presents with abdominal pain in the lower abdomen. cp 19:55 Onset: The symptoms/episode began/occurred 3 day(s) ago. Associated signs and symptoms: cp Pertinent positives: nausea and vomiting, constipation, dysuria, hematuria, Pertinent negatives: blood in stools, chest pain. Severity of pain: in the emergency department the pain is unchanged despite home interventions. Historical: - Allergies: 19:45 No Known Allergies; aa5 - PMHx: 19:45 Hypertensive disorder; aa5 - PSHx: 19:45 hysterectomy; aa5 - Immunization history:: Adult Immunizations unknown. - Infectious Disease History:: Denies. - Social history:: Smoking status: Patient reports the use of cigarette tobacco products. ROS: 20:00 Constitutional: Negative for body aches, chills, fever, poor PO intake, cp 20:00 Eyes: Negative for injury, pain, redness, and discharge, cp 20:00 Cardiovascular: Negative for chest pain, palpitations, 20:00 Respiratory: Negative for cough, shortness of breath, wheezing, 20:00 Abdomen/GI: Positive for lower abdomen pain, 20:00 : Positive for burning with urination, Negative for vaginal bleeding, 20:00 Neuro: Negative for altered mental status, headache, weakness, 20:00 All other systems are negative, Exam: 20:05 Constitutional: The patient appears in no acute distress, alert, awake, non-toxic, well cp developed, well nourished, 20:05 Head/Face: Normocephalic, atraumatic. cp 20:05 Eyes: Periorbital structures: appear normal, Conjunctiva: normal, no exudate, no injection, Sclera: no appreciated abnormality, Lids and lashes: appear normal, bilaterally, 20:05 ENT: External ear(s): are unremarkable, Nose: is normal, Mouth: Lips: moist, Oral mucosa: moist, Posterior pharynx: Airway: no evidence of obstruction, patent, 20:05 Chest/axilla: Inspection: normal, 20:05 Cardiovascular: Rate: normal, Rhythm: regular, 20:05 Respiratory: the patient does not display signs of respiratory distress, Respirations: normal, no use of accessory muscles, no retractions, labored breathing, is not present, Breath sounds: are clear throughout, no decreased breath sounds, no stridor, no wheezing, 20:05 Abdomen/GI: Inspection: abdomen appears normal, Bowel sounds: active, all quadrants, Palpation: soft, in all quadrants, mild abdominal tenderness, in the right lower quadrant and left lower quadrant, rebound tenderness, is not appreciated, 20:05 Back: CVA tenderness, is absent, 20:05 Neuro: Orientation: to person, place \T\ time. Mentation: is normal, Motor: moves all fours, strength is normal, Sensation: is normal, Vital Signs: 19:45 BP 153 / 103; Pulse 97; Resp 18 S; Temp 97.8(TE); Pulse Ox 99% on R/A; Weight 70.31 kg aa5 (R); Height 5 ft. 0 in. (R); 21:00 BP 162 / 108; Pulse 82; Resp 16; Pulse Ox 98% on R/A; jb4 23:46 BP 167 / 109; Pulse 88; Resp 16; Pulse Ox 97% on R/A; jb4 19:45 Body Mass Index 30.27 (70.31 kg, 152.4 cm) aa5 MDM: 19:42 Medical Screening Exam initiated chapin 05/11 00:36 Data reviewed: vital signs, nurses notes, lab test result(s), radiologic studies, CT cp scan, ultrasound, and as a result, I will discharge patient. 00:36 Differential diagnosis: appendicitis, bowel obstruction, cholecystitis, Cholelithiasis, cp diverticulitis, non-specific abd pain, pancreatitis, Pyelonephritis, Ureterolithiasis, urinary tract infection. I considered the following discharge prescriptions or medication management in the emergency department Medications were administered in the Emergency Department. See MAR. Care significantly affected by the following chronic conditions: Hypertension. Counseling: I had a detailed discussion with the patient and/or guardian regarding the historical points, exam findings, and any diagnostic results supporting the discharge/admit diagnosis, lab results, radiology results, the need for outpatient follow up, a general surgeon, to return to the emergency department if symptoms worsen or persist or if there are any questions or concerns that arise at home. Response to treatment: the patient's symptoms have markedly improved after treatment, and as a result, I will discharge patient. Special discussion: Based on the patient's Hx, exam, and Dx evaluation, there is no indication for emergent surgery or inpatient Tx. It is understood by the patient/guardian that if the Sx's persist or worsen they need to return immediately for re-evaluation. 05/10 19:46 Order name: Urinalysis W/Microscopic; Complete Time: 22:56 cp 05/10 22:56 Interpretation: Normal except: Urine SG > 1.030; UBLD Trace; UPROT TRACE; UESTR 75; cp URBC 5-10. 05/10 19:55 Order name: CBC with Diff; Complete Time: 22:56 cp 05/10 22:56 Interpretation: Normal except: RBC 4.95. cp 05/10 19:55 Order name: CMP; Complete Time: 22:56 cp 05/10 22:57 Interpretation: Normal except: CL 108; GLUC 111; GFR 85; AST 14; GLOB 4.1; A/G 0.9. cp 05/10 19:55 Order name: Lipase; Complete Time: 22:56 cp 05/10 21:08 Order name: CT Abd/Pelvis - IV Contrast Only; Complete Time: 22:56 cp 05/10 22:58 Order name: US Abdomen Limited: gallbladder cp 05/11 00:44 Interpretation: Report reviewed. cp 05/10 19:55 Order name: IV Saline Lock; Complete Time: 21:01 cp 05/10 19:55 Order name: Labs collected and sent; Complete Time: 21:01 cp 05/10 22:58 Order name: NPO; Complete Time: 23:00 cp 05/10 23:47 Order name: PO challenge; Complete Time: 00:49 cp Administered Medications: 05/10 21:01 Drug: Ondansetron IVP 4 mg IVP once; over 2 minutes Route: IVP; Site: left antecubital; jb4 21:30 Follow up: Response: No adverse reaction; Marked relief of symptoms jb4 21:01 Drug: Ketorolac IVP 15 mg IVP once Route: IVP; Site: left antecubital; jb4 21:30 Follow up: Response: No adverse reaction; Marked relief of symptoms jb4 21:01 Drug: NS 0.9% IV 500 ml 500 ml IV at 1 bolus once; to be given as a bolus over 30 jb4 minutes Volume: 500 ml; Route: IV; Rate: 1 bolus; Site: left antecubital; 21:30 Follow up: Response: No adverse reaction; Marked relief of symptoms; IV Status: jb4 Completed infusion; IV Intake: 500ml 23:22 Drug: Rocephin IV 1 grams IV at calculated rate once; Given slow IV push per pharmacy jb4 instructions Route: IV; Rate: calculated rate; Site: left antecubital; Disposition: 05/11 09:38 Co-signature as Attending Physician, John Mendez MD I agree with the assessment and chapin plan of care. Disposition Summary: 05/11/24 00:37 Discharge Ordered Notes: Location: Home cp Problem: new cp Symptoms: have improved cp Condition: Stable cp Diagnosis - Dysuria cp - Other cholelithiasis without obstruction cp - Constipation, unspecified cp Followup: cp - With: Adam Hendricks MD - When: 2 - 3 days - Reason: cholelithiasis Followup: cp - With: Oziel Baca MD - When: 5 - 6 days - Reason: constipation and possible colitis Discharge Instructions: - Discharge Summary Sheet cp - Constipation, Adult cp - Dysuria cp - Cholelithiasis cp Forms: - Medication Reconciliation Form cp - Antibiotic Education cp - Prescription Opioid Use cp - Patient Portal Instructions cp - Leadership Thank You Letter cp Prescriptions: - Cipro 500 mg Oral Tablet - take 1 tablet ORAL route every 12 hours for 7 days; 14 tablet; Refills: 0, cp Product Selection Permitted - Metronidazole 500 mg Oral tablet - take 1 tablet ORAL route every 8 hours for 7 days; 21 tablet; Refills: 0, cp Product Selection Permitted - dicyclomine 20 mg Oral tablet - take 1 tablet ORAL route 4 times per day As needed for abdominal pain; 30 cp tablet; Refills: 0, Product Selection Permitted Signatures: Dispatcher [employer] John Monzon MD MD cha Calderon, Audri, RN RN aa5 John Garrett PA PA Vasquez Mccollum, RN RN jb4
--- NOTE | 2024-05-11 00:40 | RAD REPORT ---
CLINICAL HISTORY: Abdominal pain, multiple GB stones. COMPARISON: None. TECHNIQUE: US ABDOMEN LIMITED 05/10/2024 10:58 PM SENIOR ANALYTICAL CHEMIST FINDINGS: Gallbladder contains innumerable layering gallstones. There is no significant gallbladder wall thicke katie. Common bile duct measures 5 mm. IMPRESSION: Cholelithiasis. Electronically signed by: Luca Nicholson MD 05/11/2024 12:37 AM SENIOR ANALYTICAL CHEMIST RP Due to temporary technical issues with the [email or web address] scribe reporting system, reports are being signed by the in-house radiologist without review as a courtesy to ensure prompt reporting the interpreting radiologist is fully responsible for the content of the report. Transcribed Date/Time: 05/11/2024 12:39 AM
[2024-05-12 02:36] VITALS: BP 167/109; TEMP 97.8; O2SAT 97
== END 2024-05-11 00:49 | disposition home or self-care (01) ==
LOC: ER 19:26
DX: K80.80 Other cholelithiasis without obstruction (principal); K59.00 Constipation, unspecified
CPT/HCPCS: 85025; 81001; 36415; 83690; 80053; 74177; 76705; 96375; 96374; 99284; Q9967; J2405; J7040; J0696

== ENCOUNTER 2024-05-29 07:18 | Day surgery (SDC) | payer OTHER ==
[2024-05-29] MEDS ORDERED: LIDOCAINE 1% MPF 5 ML VIAL ONE (08:31)
[2024-05-29] MEDS ORDERED: propofoL 200 MG/20 ML VIAL IV ONE (08:32)
[2024-05-29] MEDS ORDERED: EPHEDRINE SULF 50 MG/ML VIAL ONE (08:32)
[2024-05-29] MEDS: NA CHLORIDE 0.9% 1,000 ML ONE (08:43)
[2024-05-29 10:33] VITALS: O2SAT 99
[2024-05-29 10:40] VITALS: BP 135/78; TEMP 97.6
--- NOTE | 2024-05-30 12:26 | EKG ---
Test Date: 2024-05-26 Test Time: 16:17:16 Sap Developer: JAKE MEASUREMENT RESULTS: Intervals: Rate: 90 MI: 146 QRSD: 76 QT: 368 QTc: 450 [place]: P: 35 MI: 146 QRS: 35 T: 42 INTERPRETIVE STATEMENTS: Normal sinus rhythm Cannot rule out Anterior infarct, age undetermined Abnormal ECG Compared to ECG 02/26/2005 09:25:00 Myocardial infarct finding now present Sinus tachycardia no longer present Short MI interval no longer present Electronically Signed On 05-30-24 12:19:35 HANDY WORKER by Matthew Arteaga
== END 2024-05-29 09:33 | disposition home or self-care (01) ==
LOC: OR 07:18
PROVIDERS: ATTEND Surgery
PROC: 0DJD8ZZ Inspection of Lower Intestinal Tract, Via Natural or Artificial Opening Endoscopic (ICD-10-PCS; principal; 2024-05-29 08:30)
DX: Z12.11 Encounter for screening for malignant neoplasm of colon (principal); K64.4 Residual hemorrhoidal skin tags; K64.8 Other hemorrhoids
CPT/HCPCS: 93005; 82947; 45378; J2704; J2003; J7030

== ENCOUNTER 2024-06-05 09:12 | Day surgery (SDC) | payer OTHER ==
[2024-06-02 16:49] LABS: ALT/SGPT 19 U/L (13-56); AST/SGOT 13 U/L (15-37); Albumin 3.5 g/dL (3.4-5.0); Albumin/Globulin Ratio 0.9 (1.1-1.8); Alkaline Phosphatase 68 U/L (45-117); Bilirubin Total 0.2 mg/dL (0.2-1.0); Globulin 3.8 g/dL (2.3-3.5); Lipase 23 U/L (13-75); Protein, Total 7.3 g/dL (6.4-8.2)
[2024-06-02 16:51] LABS: Bilirubin Direct < 0.2 mg/dL (0-0.2)
--- NOTE | 2024-06-02 17:00 | RAD REPORT ---
Procedure: Chest Pa And Lat (2 Views) HISTORY: Preop for cholecystectomy. COMPARISON: none FINDINGS: The lungs appear clear of acute infiltrate. No significant pleural effusion noted. The heart is normal size. IMPRESSION: No acute abnormality is displayed.
[2024-06-05] MEDS ORDERED: NA CHLORIDE 0.9% 1,000 ML ONE (09:36)
[2024-06-05] MEDS ORDERED: LIDOCAINE 1% MPF 5 ML VIAL ONE (09:50)
[2024-06-05] MEDS ORDERED: propofoL 200 MG/20 ML VIAL IV ONE (09:50)
[2024-06-05] MEDS ORDERED: KETOROLAC 30 MG/ML INJ ONE (09:50)
[2024-06-05] MEDS ORDERED: ONDANSETRON 4 MG/2 ML VIAL ONE (09:50)
[2024-06-05] MEDS ORDERED: MIDAZOLAM HCL 2 MG/2 ML INJ ONE (09:51)
[2024-06-05] MEDS ORDERED: FENTANYL CITR 100 MCG/2 ML ONE (09:51)
[2024-06-05] MEDS ORDERED: ROCURONIUM 50 MG/5 ML VIAL IV ONE (09:51)
[2024-06-05] MEDS: CEFOXITIN SODIUM 1 GM/VIAL ONE (10:51)
[2024-06-05] MEDS ORDERED: dexAMETHasone 4 MG/ML VIAL ONE (10:57)
[2024-06-05] MEDS ORDERED: Mastisol Adhesive Liq ONE (11:28)
--- NOTE | 2024-06-05 11:38 | P.BOP ---
Preoperative diagnosis: acute cholecystitis, symptomatic cholelithiasis, RUQ abd pain Postoperative diagnosis: same plus umbilical hernia Primary procedure: 1. Laparoscopic cholecystectomy Secondary procedure: 2. Open umbilical hernia repair Estimated blood loss: <10cc Specimen: GB Findings: as above Anesthesia: General Complications: None Transferred to: Recovery Room Condition: Good
[2024-06-05] MEDS: ONDANSETRON 4 MG/2 ML VIAL ONE (11:54)
[2024-06-05] MEDS ORDERED: SUGAMMADEX SODIUM 200 MG/2 ML VIAL IV ONE (12:37)
[2024-06-05 13:33] VITALS: BP 130/79; TEMP 98; O2SAT 97
--- NOTE | 2024-06-05 22:18 | DS ---
Date of Discharge: 06/05/2024 Diagnoses: Acute cholecystitis, symptomatic cholelithiasis, right upper quadrant abdominal pain, and umbilical hernia. Procedures: Laparoscopic cholecystectomy, open repair of umbilical hernia. Condition: Stable. Disposition: Home. Activity: As tolerated. No heavy lifting. Discharge Instructions: Follow up in my office in 1 week. Call for appointment at [phone]. Keep a ronnie dry for 48 hours, then may shower. Keep Steri-Strip intact. MULU/ADOLFO Voice ID: [id number] Report ID: [id number]
--- NOTE | 2024-06-05 22:18 | OP ---
Date of Procedure: 06/05/2024 Surgeon: Iain Escalona MD Preoperative Diagnoses: Acute cholecystitis, symptomatic cholelithiasis, right upper quadrant abdomi nal pain. Postoperative Diagnoses: Acute cholecystitis, symptomatic cholelithiasis, right upper quadrant abdom inal pain, umbilical hernia. Procedures: 1. Laparoscopic cholecystectomy. 2. Open umbilical hernia repair. Estimated Blood Loss: Less than 10 cc. Specimen: Gallbladder. Findings: The patient has the inflamed gallbladder with multiple omental adhesions to the gallbladde r. She also has umbilical hernia that needed to be repaired. Anesthesia: General plus local. Complications: None. Implants: None. Indications: This is the case of a 54-year-old patient who comes to us with recurrent epigastric and right upper quadrant pain, radiating to the back, associated with nausea and vomiting, diagnosed wit h acute cholecystitis and symptomatic cholelithiasis. The benefits, alternatives, and risks of lapar oscopic, possible open cholecystectomy were fully explained, which included, but not limited to, infe ction, bleeding, damage to adjacent structures, anesthesia complication, choledocholithiasis, bile le ak, pancreatitis, OK, and even . She also understands this may not relieve symptoms. She might need more than one surgical intervention. She understood and signed a consent. Procedure In Detail: The patient was brought to the operating room, placed in supine position. Anes thesia was done without complication. Abdominal area was prepped and draped in usual sterile fashion . Marcaine 0.5% was injected for local anesthetic, followed by sharp incision of the skin in the sup raumbilical region. Incision was carried down to fascia. We noticed, when we opened the fascia, the patient had an umbilical hernia. We cannot continue without fixing that, since this will affect our closure at the end, so the hernia fascial edges were cleaned. We proceeded to place Vicryl #1 in a [id number] fashion multiple times. The fascial edges were cleaned. After that, then we continu ed. We put a Luis F trocar. Pneumoperitoneum was obtained. Placed 3 more trocars, 5 mm each one of them in the epigastric and right upper quadrant area under direct visualization after obtaining pneu moperitoneum. We noticed multiple omental adhesions to the gallbladder consistent with also chronic evidence of cholecystitis, so with the help of LigaSure, we were able to slowly remove adhesions away from the gallbladder and from the liver until we had a clear visualization of the gallbladder. Gras per was placed in the infundibulum, another grasper in the fundus. The gallbladder was retracted in the inferolateral fashion exposing the triangle of Calot, obtaining critical view. The cystic duct a nd cystic artery were clearly isolated and freed circumferentially, and a connection between those an d the gallbladder was clearly identified. I proceeded to ligate those by using at least 3 clips prox imal and 1 clip distal, ligation in the middle. Same was done with the cystic artery. No bile leak. No bleeding. The gallbladder was removed from liver using Bovie cauterizer and removed from abdomi nal cavity using the Endo Catch through the umbilical incision. The area was inspected once again. No bile leak. No bleeding. The area of adhesions with no bleeding. We proceeded to remove the troc ars under direct vision, deflated the pneumoperitoneum. Closed the fascia and the umbilical hernia w ith #1 Vicryl, irrigated subcutaneous tissue and closed that with 3-0 chromic, and the skin with 3-0 chromic sutures. Steri-Strip was placed over the area. Sponge counts and instrument counts were cor rect. The patient tolerated procedure well. The patient was sent to recovery in stable condition. MULU/ADOLFO Voice ID: [id number] Report ID: [id number]
== END 2024-06-05 13:20 | disposition home or self-care (01) ==
LOC: OR 09:12
PROVIDERS: ATTEND Surgery
PROC: 0DNU4ZZ Release Omentum, Percutaneous Endoscopic Approach (ICD-10-PCS; 2024-06-05)
PROC: 0FT44ZZ Resection of Gallbladder, Percutaneous Endoscopic Approach (ICD-10-PCS; principal; 2024-06-05 11:30)
DX: K80.10 Calculus of gallbladder with chronic cholecystitis without obstruction (principal); R10.11 Right upper quadrant pain; K66.0 Peritoneal adhesions (postprocedural) (postinfection); K42.9 Umbilical hernia without obstruction or gangrene
CPT/HCPCS: 47562; 49329; 36415; 82947 ×2; 80076; 88304; 83690; 71046; J2704; J1100; J2003; J2250; J3010; J0694; J2405 ×2; J7030